=== PATIENT | female | born 1995 | race Caucasian/White ===

== ENCOUNTER 2023-04-07 05:30 | Inpatient (IN) | payer BC ==
[~2023-04-07 05:30] MED LIST: Acetaminophen 500 MG TAB PO PRN; Butorphanol Tartrate 1 MG/ML VIAL SLOW IVP PRN; Carboprost 250 MCG/ML AMP IM PRN; Diphenoxylate HCl/Atropine Tablet PO PRN; Docusate 100 MG CAP PO PRN; HYDROcodone/Acetaminophen 5/325 mg Tablet PO PRN; Ibuprofen 800 MG TAB PO PRN; Lactated Ringer's 1,000 ML IV SCH; Lidocaine 1% (PF) 30 ML VIAL SC PRN; Methylergonovine 0.2 MG/ML VIAL IM PRN; Misoprostol 200 MCG TAB PR PRN; NS w/ Oxytocin 30 units 500 ML IV SCH; Ondansetron PF 4 MG/2 ML Vial IVP PRN; Promethazine HCl 25 MG/ML VIAL IM PRN; Tranexamic Acid 1,000 MG/10 ML VIAL IVP PRN; Zolpidem Tartrate 5 MG TAB PO PRN; fentaNYL 50 mcg/mL 1 mL Vial SLOW IVP PRN; hydrALAZINE 20 MG/ML VIAL SLOW IVP PRN
[2023-04-07 06:38] LABS: Hemoglobin 13.1 g/dL (12.0-15.5); Mean Corpuscular HGB CONC 35.1 g/dL (32.0-36.0); Mean Corpuscular Hemoglobin 31.2 pg (27.0-33.0); Mean Corpuscular Volume 88.8 fl (81.6-98.3); Mean Platelet Volume 10.9 fl (7.4-10.4); Platelet Count 160 10x3/uL (150-450); RBC Distribution Width 12.4 % (11.5-14.5); White Blood Cell (WBC) Count 9.3 10x3/uL (3.5-10.5)
[2023-04-07 06:51] VITALS: BMI 25.0
[2023-04-07 07:31] LABS: HBSAg Index 0.19 S/CO (0-0.99); Hep B Surf Ag - L&D Non-Reactive S/CO (NonReactive); Syphilis Antibody Nonreactive (Nonreactive); Syphilis Antibody Index 0.04 S/CO (<1.00 Non-Reactive)
[2023-04-07] MEDS: Misoprostol 100 MCG TAB VAG SCH (08:10)
[2023-04-07] MEDS ORDERED: CEFAZOLIN 1 GM VIAL SLOW IVP SCH (14:45)
[2023-04-07] MEDS ORDERED: CEFAZOLIN 2 GM in Sodium Chloride 0.9% 100 ML IVPB SCH (15:00)
[2023-04-07] MEDS ORDERED: Terbutaline Sulfate 1 MG/ML VIAL ONE (16:14)
[2023-04-07] MEDS ORDERED: Famotidine/PF 20 mg/2ml Vial ONE (16:25)
[2023-04-07] MEDS ORDERED: Ondansetron PF 4 MG/2 ML Vial ONE (16:25)
[2023-04-07] MEDS ORDERED: Oxytocin 10 UNITS/ML VIAL ONE (16:25)
[2023-04-07] MEDS ORDERED: Morphine PF 10 MG/10 ML VIAL ONE ×2 (16:25→16:26)
[2023-04-07] MEDS ORDERED: Dexamethasone 4 mg/ml Vial ONE (16:25)
[2023-04-07] MEDS ORDERED: fentaNYL 50 mcg/mL 1 mL Vial ONE (16:25)
[2023-04-07] MEDS ORDERED: PHENYLEPHRINE-NS 100 MCG/ML 10 ML SYRINGE ONE (16:43)
[2023-04-07] MEDS ORDERED: Azithromycin 500 MG VIAL ONE (16:53)
[2023-04-07] MEDS ORDERED: ePHEDrine Sulfate 50 MG/10 ML VIAL ONE (16:55)
[2023-04-07] MEDS ORDERED: Promethazine HCl 25 MG/ML VIAL IM PRN (17:50)
[2023-04-07] MEDS ORDERED: Fentanyl 100 MCG/2 ML VIAL SLOW IVP PRN (17:50)
[2023-04-07] MEDS ORDERED: Ondansetron PF 4 MG/2 ML Vial IVP PRN ×2 (17:50→21:12)
[2023-04-07] MEDS ORDERED: Ondansetron HCl/PF 4 MG/2 ML Vial IVP PRN (17:50)
[2023-04-07] MEDS ORDERED: Naloxone HCl 0.4 mg/ml Vial IV PRN (17:50)
[2023-04-07] MEDS ORDERED: Naloxone HCl 0.4 mg/ml Vial IVP PRN ×2 (17:50)
[2023-04-07] MEDS ORDERED: Promethazine HCl 25 MG SUPP PR PRN (17:50)
[2023-04-07] MEDS ORDERED: Moisturizing Cream (Eucerin) 113 GM JAR TOP PRN (17:50)
[2023-04-07] MEDS ORDERED: Meperidine HCl/PF 25 MG/ML VIAL SLOW IVP PRN (17:50)
[2023-04-07] MEDS ORDERED: HYDROmorphone 2 MG/ML VIAL SLOW IVP PRN (17:50)
[2023-04-07] MEDS ORDERED: Communication Order-Pharmacy FS SCH (18:00)
[2023-04-07] MEDS ORDERED: Ketorolac Tromethamine 30 MG/ML VIAL IVP SCH (18:00)
[2023-04-07] MEDS ORDERED: Bisacodyl 10 MG SUPP PR PRN (21:12)
[2023-04-07] MEDS ORDERED: diphenhydrAMINE 25 MG CAP PO PRN (21:12)
[2023-04-07] MEDS ORDERED: hydrALAZINE 20 MG/ML VIAL SLOW IVP PRN (21:12)
[2023-04-07] MEDS ORDERED: Lanolin Ointment 7 GM TUBE TOP PRN (21:12)
[2023-04-07] MEDS ORDERED: Acetaminophen 325 MG TAB PO PRN (21:12)
[2023-04-07] MEDS ORDERED: Boostrix 0.5 ML (Tdap) VIAL (>/=7 yrs of age) IM ONE (21:12)
[2023-04-07] MEDS ORDERED: NS w/ Oxytocin 30 units 500 ML ONE (21:19)
[2023-04-07] MEDS: Docusate 100 MG CAP PO SCH (22:30)
[2023-04-07] MEDS: diphenhydrAMINE 50 MG/ML VIAL IVP PRN (22:40)
[2023-04-08 03:37] LABS: Hemoglobin 14.4 g/dL (12.0-15.5); Mean Corpuscular HGB CONC 34.1 g/dL (32.0-36.0); Mean Corpuscular Hemoglobin 30.7 pg (27.0-33.0); Mean Platelet Volume 10.9 fl (7.4-10.4); Platelet Count 119 10x3/uL (150-450); RBC Distribution Width 12.3 % (11.5-14.5); Red Blood Cell (RBC) Count 4.69 10x6/uL (3.90-5.03); White Blood Cell (WBC) Count 13.5 10x3/uL (3.5-10.5)
[2023-04-08] MEDS: Ketorolac Tromethamine 30 MG/ML VIAL IVP PRN ×2 (03:57→10:52)
[2023-04-08] MEDS: diphenhydrAMINE 50 MG/ML VIAL IVP PRN (03:58)
[2023-04-08] MEDS: Misoprostol 100 MCG TAB VAG SCH ×2 (07:30→07:31)
[2023-04-08] MEDS: Prenatal Vitamin 1 TAB PO SCH (09:03)
[2023-04-08] MEDS: Docusate 100 MG CAP PO SCH ×2 (09:03→21:50)
[2023-04-08] MEDS: HYDROcodone/Acetaminophen 5/325 mg Tablet PO PRN ×3 (09:12→21:51)
[2023-04-08] MEDS: Ibuprofen 800 MG TAB PO SCH (21:50)
[2023-04-09] MEDS: HYDROcodone/Acetaminophen 5/325 mg Tablet PO PRN ×3 (03:22→13:56)
[2023-04-09] MEDS: Docusate 100 MG CAP PO SCH ×2 (09:40→21:36)
[2023-04-09] MEDS: Ibuprofen 800 MG TAB PO SCH ×2 (09:41→17:16)
[2023-04-09] MEDS: Prenatal Vitamin 1 TAB PO SCH (09:41)
[2023-04-10] MEDS: Ibuprofen 800 MG TAB PO SCH ×2 (02:09→10:02)
[2023-04-10] MEDS: HYDROcodone/Acetaminophen 5/325 mg Tablet PO PRN ×2 (02:09→08:33)
[2023-04-10] MEDS: Docusate 100 MG CAP PO SCH (08:34)
[2023-04-10] MEDS: Prenatal Vitamin 1 TAB PO SCH (08:34)
[2023-04-10 09:00] VITALS: BP 111/68; TEMP 97.6
== END 2023-04-10 13:15 | disposition home or self-care (01) | DRG 788 ==
LOC: CSHLD 05:47 → CSHPED 21:43
PROVIDERS: ADMIT Obstetrics & Gynecology; ATTEND Obstetrics & Gynecology
PROC: 10D00Z1 Extraction of Products of Conception, Low, Open Approach (ICD-10-PCS; principal; 2023-04-07)
PROC: 3E0P7VZ Introduction of Hormone into Female Reproductive, Via Natural or Artificial Opening (ICD-10-PCS; 2023-04-07)
DX: O76 Abnormality in fetal heart rate and rhythm complicating labor and delivery (principal); Z3A.39 39 weeks gestation of pregnancy; Z37.0 Single live birth
CPT/HCPCS: 36415; 51702; 85027; 86780; 86850; 86900; 86901; 87340; J1100; J1200; J1885; J2274; J2405; J2590; J3010; J3105; J3490